=== PATIENT | male | born 1950 | race Caucasian/White ===

== ENCOUNTER 2024-09-09 20:03 | Inpatient (IN) | payer MEDICARE, OTHER ==
[~2024-09-09] VITALS: Ht 177.8 cm; Wt 74.8 kg
[2024-09-09 21:15] LABS: BASOPHILS % (AUTO) 0.5 % (0.0-2.0); EOSINOPHILS # (AUTO) 0.4 K/uL (0.0-0.7); EOSINOPHILS % (AUTO) 6.1 % (0.0-6.0); HEMATOCRIT 42 % (39-51); LYMPHOCYTES # (AUTO) 1.6 K/uL (0.8-4.8); LYMPHOCYTES % (AUTO) 26.6 % (20.0-44.0); MEAN CORPUSCULAR HEMOGLOBIN 35 PG (26.0-33.0); MEAN CORPUSCULAR HGB CONC 33 g/dl (31.0-36.0); MEAN CORPUSCULAR VOLUME 106 fL (80-96); MONOCYTES # (AUTO) 0.8 K/uL (0.1-1.30); MONOCYTES % (AUTO) 13.6 % (2.0-12.0); NEUTROPHILS # (AUTO) 3.3 K/uL (1.8-8.9); NEUTROPHILS % (AUTO) 53.2 % (43.0-81.0); PLATELET COUNT (AUTO) 191 K/uL (150-450); RED BLOOD CELL COUNT(AUTO) 4.01 MIL/uL (4.5-6.0); RED CELL DISTRIBUTION WIDTH 13.2 % (11.5-15.0); WHITE BLOOD COUNT (AUTO) 6.1 K/uL (4.3-11.0)
[2024-09-09 21:18] LABS: CALCIUM, SERUM 8.9 mg/dL (8.5-10.1); CARBON DIOXIDE 27 mmol/L (21-32); CHLORIDE 102 mmol/L (98-107); CREATININE 0.9 mg/dL (0.6-1.3); GLUCOSE 103 mg/dL (74-106); POTASSIUM 3.8 mmol/L (3.5-5.1); SODIUM SERUM 137 mmol/L (136-145); UREA NITROGEN, BLOOD 20 mg/dL (7-18)
[2024-09-09 21:24] LABS: ALANINE AMINOTRANSFERASE 33 U/L (12-78); ALBUMIN 3.1 g/dL (3.4-5.0); ALCOHOL, BLOOD < 3 mg/dL (0-10); ALKALINE PHOSPHATASE 113 U/L (46-116); ASPARTATE AMINOTRANSFERASE 28 U/L (15-37); BILIRUBIN,DIRECT 0.1 mg/dL (0.0-0.2); BILIRUBIN,TOTAL 0.4 mg/dL (0.2-1.0); TOTAL PROTEIN, SERUM 6.9 g/dL (6.4-8.2)
[2024-09-09 21:25] LABS: ACETAMINOPHEN <10 ug/ml (10-30); SALICYLATE 0.8 mg/dL (2.8-20.0)
[2024-09-09 23:42] LABS: APPEARANCE,URINE CLEAR (CLEAR); BILIRUBIN,URINE NEGATIVE (NEGATIVE); BLOOD, URINE TRACE-INTA Ery/uL (NEGATIVE); COLOR,URINE YELLOW (YELLOW); KETONES,URINE NEGATIVE (NEGATIVE); LEUKOCYTE ESTERASE ,URINE NEGATIVE (NEGATIVE); NITRITE, URINE NEGATIVE (NEGATIVE); PH,URINE 7.5 (5.0-8.0); PROTEIN,URINE NEGATIVE (NEGATIVE); UGLUCOSE NEGATIVE (NEGATIVE); UROBILINOGEN,URINE 0.2 EU/dL (0.2)
[2024-09-09 23:53] LABS: ADD URINE CULTURE NO; BACTERIA,URINE Few /HPF (None Seen); SQUAMOUS EPITHELIAL CELL,UR Few /HPF (None Seen)
[2024-09-10 00:02] LABS: AMPHETAMINE, URINE NEGATIVE (NEGATIVE); BARBITURATE, URINE NEGATIVE (NEGATIVE); BENZODIAZEPINE, URINE NEGATIVE (NEGATIVE); CANNABINOID, URINE NEGATIVE (NEGATIVE); COCCAINE, URINE NEGATIVE (NEGATIVE); OPIATE, URINE NEGATIVE (NEGATIVE); PHENCYCLIDINE SCREEN,URINE NEGATIVE (NEGATIVE)
[2024-09-10] MEDS ORDERED: LORAZEPAM 0.5 MG TABLET PO PRN (04:30)
[2024-09-10] MEDS ORDERED: MAGNESIUM HYDROXIDE 30 ML UDC PO PRN (04:30)
[2024-09-10] MEDS ORDERED: MAG HYDROX/AL HYDROX/SIMETH 30 ML UDC PO PRN (04:30)
[2024-09-10] MEDS ORDERED: ACETAMINOPHEN 325 MG TABLET PO PRN (04:30)
[2024-09-10] MEDS ORDERED: ZOLPIDEM TARTRATE 5 MG TABLET PO PRN ×2 (04:30)
[2024-09-10] MEDS ORDERED: LORAZEPAM 1 MG TABLET PO PRN (04:30)
[2024-09-10] MEDS ORDERED: MAGN200T5 PO (04:30)
[2024-09-10] MEDS ORDERED: AMAN100T PO (04:31)
[2024-09-10] MEDS ORDERED: LACO50TA2 PO (04:32)
[2024-09-10] MEDS ORDERED: DOCU-141 PO (04:32)
[2024-09-10] MEDS ORDERED: LEVE500T9 PO (04:33)
[2024-09-10] MEDS ORDERED: MULT-225 PO (04:34)
[2024-09-10] MEDS ORDERED: ATOR10TA PO (04:34)
[2024-09-10 04:35] VITALS: BP 132/74; TEMP 98; O2SAT 98
[2024-09-10] MEDS ORDERED: MIRT-119 PO (04:35)
[2024-09-10] MEDS: BLOOD SUGAR DIAGNOSTIC 1 EACH STRIP IN ONE (05:10)
[2024-09-10] MEDS: DOCUSATE SODIUM 100 MG CAPSULE PO SCH (09:18)
[2024-09-10] MEDS: MULTIVITAMINS,THERAGRAN 1 UDTAB TABLET PO SCH (09:18)
[2024-09-10] MEDS: LACOSAMIDE 50 MG TABLET PO SCH (09:18)
[2024-09-10] MEDS: LEVETIRACETAM (250 MG) 250 MG TABLET PO SCH (10:07)
[2024-09-10] MEDS: AMANTADINE HCL 100 MG CAPSULE PO SCH (10:11)
[2024-09-10 16:00] VITALS: BP 113/80; TEMP 97.9; O2SAT 97
[2024-09-10] MEDS: MAGNESIUM OXIDE 400 MG TABLET PO SCH (16:53)
[2024-09-10 20:17] VITALS: BP 108/82; TEMP 97.9; O2SAT 96
[2024-09-10] MEDS: QUETIAPINE FUMARATE 25 MG TABLET PO SCH (22:04)
[2024-09-10] MEDS: ATORVASTATIN 10 MG TABLET PO SCH (22:04)
[2024-09-11 07:52] LABS: BASOPHILS % (AUTO) 0.7 % (0.0-2.0); EOSINOPHILS # (AUTO) 0.4 K/uL (0.0-0.7); EOSINOPHILS % (AUTO) 6.5 % (0.0-6.0); HEMATOCRIT 41 % (39-51); HEMOGLOBIN 13.9 g/dL (13.5-17.5); LYMPHOCYTES # (AUTO) 1.4 K/uL (0.8-4.8); LYMPHOCYTES % (AUTO) 23.2 % (20.0-44.0); MEAN CORPUSCULAR HEMOGLOBIN 34 PG (26.0-33.0); MEAN CORPUSCULAR HGB CONC 34 g/dl (31.0-36.0); MEAN CORPUSCULAR VOLUME 100 fL (80-96); MONOCYTES # (AUTO) 0.6 K/uL (0.1-1.30); MONOCYTES % (AUTO) 9.3 % (2.0-12.0); NEUTROPHILS # (AUTO) 3.7 K/uL (1.8-8.9); NEUTROPHILS % (AUTO) 60.3 % (43.0-81.0); PLATELET COUNT (AUTO) 197 K/uL (150-450); RED CELL DISTRIBUTION WIDTH 12.5 % (11.5-15.0); WHITE BLOOD COUNT (AUTO) 6.2 K/uL (4.3-11.0)
[2024-09-11] MEDS: ESCITALOPRAM OXALATE (10 MG) 10 MG TABLET PO SCH (08:56)
[2024-09-11 09:16] LABS: ALBUMIN 3.2 g/dL (3.4-5.0); BILIRUBIN,TOTAL 0.6 mg/dL (0.2-1.0); CALCIUM, SERUM 8.9 mg/dL (8.5-10.1); CREATININE 0.7 mg/dL (0.6-1.3); POTASSIUM 3.8 mmol/L (3.5-5.1); TOTAL PROTEIN, SERUM 6.8 g/dL (6.4-8.2)
[2024-09-11 16:00] VITALS: BP 136/74; TEMP 98; O2SAT 98
[2024-09-12 08:00] VITALS: BP 124/81; TEMP 98; O2SAT 96
[2024-09-12 16:00] VITALS: BP 132/87; TEMP 97.9; O2SAT 96
[2024-09-12 21:17] VITALS: BP 146/83; TEMP 97.8; O2SAT 97
[2024-09-13 08:00] VITALS: BP 131/88; TEMP 97.9; O2SAT 97
[2024-09-13 16:00] VITALS: BP 129/84; TEMP 97.7; O2SAT 97
[2024-09-13 20:15] VITALS: BP 112/73; TEMP 97.7; O2SAT 97
[2024-09-13] MEDS: QUETIAPINE FUMARATE 25 MG TABLET PO SCH (21:11)
[2024-09-14 16:00] VITALS: BP 125/81; TEMP 97.5; O2SAT 98
[2024-09-14] MEDS: QUETIAPINE FUMARATE 25 MG TABLET PO SCH (16:56)
[2024-09-14 20:27] VITALS: BP 131/86; TEMP 97.4; O2SAT 96
[2024-09-15 08:00] VITALS: BP 135/81; TEMP 97.8; O2SAT 96
[2024-09-15] MEDS: ESCITALOPRAM OXALATE (10 MG) 10 MG TABLET PO SCH (08:45)
[2024-09-15 16:00] VITALS: BP 127/85; TEMP 98.7; O2SAT 96
[2024-09-15 20:12] VITALS: BP 111/85; TEMP 98.6; O2SAT 96
[2024-09-16 08:00] VITALS: BP 120/88; TEMP 97.9; O2SAT 98
[2024-09-16] MEDS: OLANZAPINE 10 MG VIAL IM ONE (09:47)
[2024-09-16 16:00] VITALS: BP 129/91; TEMP 98.6; O2SAT 97
[2024-09-16 20:24] VITALS: BP 131/91; TEMP 97.9; O2SAT 96
[2024-09-17 08:00] VITALS: BP 125/84; TEMP 98.7; O2SAT 99
[2024-09-17 16:00] VITALS: BP 139/82; TEMP 98.6; O2SAT 97
[2024-09-17] MEDS: QUETIAPINE FUMARATE 25 MG TABLET PO SCH ×2 (16:23→21:12)
[2024-09-17 21:19] VITALS: BP 116/77; TEMP 97.7; O2SAT 96
[2024-09-18 16:00] VITALS: BP 137/87; TEMP 98.9; O2SAT 100
[2024-09-18 20:49] VITALS: BP 133/85; TEMP 98.3; O2SAT 97
[2024-09-19 16:06] VITALS: BP 112/79; TEMP 98.2; O2SAT 96
[2024-09-19 20:35] VITALS: BP 108/68; TEMP 98.2; O2SAT 98
[2024-09-20 08:00] VITALS: BP 135/85; TEMP 98.7; O2SAT 98
== END 2024-09-20 11:35 | DRG 885 ==
LOC: ER 20:15 → GPS 09-10 02:41
PROVIDERS: ADMIT Psychiatry & Neurology Psychiatry; ATTEND Student in an Organized Health Care Education/Training Program
DX: F33.3 Major depressive disorder, recurrent, severe with psychotic symptoms (principal); F02.83 Dementia in other diseases classified elsewhere, unspecified severity, with mood disturbance; E44.1 Mild protein-calorie malnutrition; F20.9 Schizophrenia, unspecified; E78.5 Hyperlipidemia, unspecified; I10 Essential (primary) hypertension; G40.909 Epilepsy, unspecified, not intractable, without status epilepticus; Z20.822 Contact with and (suspected) exposure to COVID-19; Z73.6 Limitation of activities due to disability; N40.0 Benign prostatic hyperplasia without lower urinary tract symptoms; R26.9 Unspecified abnormalities of gait and mobility; Z68.23 Body mass index [BMI] 23.0-23.9, adult; F39 Unspecified mood [affective] disorder; G20.A1 Parkinson's disease without dyskinesia, without mention of fluctuations; Z79.899 Other long term (current) drug therapy; N19 Unspecified kidney failure
CPT/HCPCS: 36415; 80048-TC; 80053-TC; 80061-TC; 80076-TC; 81001; 83735-TC; 84443-TC; 85025-TC; 87081-TC; 97110-TC; 97116-TC; 97530-TC; G0480; J3490